=== PATIENT | male | born 2000 | race Caucasian/White ===

== ENCOUNTER 2020-10-12 19:06 | Emergency (ER) | payer OTHER ==
[~2020-10-12] VITALS: Ht 188 cm; Wt 106.6 kg
[2020-10-12] MEDS ORDERED: OFLOXACIN5 ML OT (19:59)
== END 2020-10-12 20:30 | disposition home or self-care (01) ==
LOC: ER 20:10
DX: T15.81XA Foreign body in other and multiple parts of external eye, right eye, initial encounter (principal); F17.210 Nicotine dependence, cigarettes, uncomplicated
CPT/HCPCS: 99283